=== PATIENT | female | born 1985 | race American Indian/Alaskan Native ===

== ENCOUNTER 2021-02-21 22:46 | Emergency (ER) | payer SELFPAY ==
[2021-02-22 00:22] VITALS: BP 132/83
[2021-02-22] MEDS ORDERED: CYCLOBENZAPRINE 10 MG TAB PO ONE (00:27)
[2021-02-22] MEDS ORDERED: predniSONE 20 MG TAB PO ONE (00:27)
[2021-02-22] MEDS ORDERED: IBUPROFEN 600 MG TAB PO ONE (00:27)
--- NOTE | 2021-02-22 02:19 | Vascular Lab Report ---
DUPLEX DOPPLER LOWER EXTREMITY VEINS, BILATERAL INDICATION / CLINICAL INFORMATION: Bilateral LE swelling and pain s/p [place] trip TECHNIQUE: Duplex doppler imaging was performed through the veins of both lower extremities using chema ous compression and other maneuvers. COMPARISON: None available. FINDINGS: RIGHT COMMON FEMORAL VEIN: Negative. RIGHT FEMORAL VEIN: Negative. RIGHT POPLITEAL VEIN: Negative. RIGHT CALF VEINS: Negative. LEFT COMMON FEMORAL VEIN: Negative. LEFT FEMORAL VEIN: Negative. LEFT POPLITEAL VEIN: Negative. LEFT CALF VEINS: Negative. ADDITIONAL FINDINGS: None. IMPRESSION: No sonographic evidence for DVT in either lower extremity. Signer Name: Albino Fernandez MD Signed: 02/22/2021 2:15 AM Workstation Name: [id number]
--- NOTE | 2021-02-22 03:27 | Emergency Department Report ---
ED Extremity Problem HPI - General Chief complaint: Extremity Injury, Lower Stated complaint: BILATERAL LEG AND ANKLE SWELLING Source: patient Mode of arrival: Wheelchair Limitations: Physical Limitation - History of Present Illness Initial comments: Patient is a 36-year-old -Armenian female with no past medical history presents to the ED with complaint of acute onset persistent nontraumatic bilateral diffuse lower extremity pain with mild swelling for the last 1 week. Patient states that the pain has been persistent and worse in the last 2 days. Patient states that she just returned from a trip for a vacation in [place] about 1 week ago and states that the physical activities she was involving were not unusual. 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 Patient denies shortness of breath, fever, chills, cough, chest pain, numbness and tingling or weakness of lower extremities bilaterally, low back pain, hematuria, dizziness, syncope, fall, nausea and vomiting, fever or chills or hip pain. MD Complaint: extremity pain (bilateral leg pain and swellimng), extremity s welling (Bilateral leg swelling and pain), other (Patient just returned from a vacation in [place] 1 week ago) -: Sudden, days(s) (7) Location: bilateral lower extremity History of Same: No -: Yes myalgia, Yes arthralgia, No fever, No associated dyspnea, No associated chest pain Radiation: distal Severity scale (0 -10): 9 Quality: aching, sharp Consistency: constant Improves with: nothing Worsens with: weight bearing, walking, exertion, palpation Associated Symptoms: denies other symptoms, myalgias, arthralgias. denies: chest pain, shortness of breath, fever, rash - Related Data Previous Rx's Medication Instructions Recorded Last Taken Type Cyclobenzaprine [Flexeril] 10 mg PO TID PRN #14 tablet 08/26/13 Unknown Rx HYDROcodone/APAP 5-325 [[place] 1 each PO Q6HR PRN #10 tablet 08/26/13 Unknown Rx 5-325 mg TAB] Naproxen [Naprosyn] 500 mg PO BID #20 tablet 08/26/13 Unknown Rx Baclofen 20 mg PO Q12H PRN #30 tablet 02/22/21 Unknown Rx Ibuprofen [Motrin] 800 mg PO Q8HR PRN #30 tablet 02/22/21 Unknown Rx Allergies Allergy/AdvReac Type Severity Reaction Status Date / Time No Known Allergies Allergy Verified 02/22/21 00:22 ED Review of Systems ROS: Stated complaint: BILATERAL LEG AND ANKLE SWELLING Other details as noted in HPI Constitutional: denies: chills, fever Eyes: denies: eye pain, eye discharge, vision change ENT: denies: ear pain, throat pain Respiratory: denies: cough, shortness of breath, wheezing Cardiovascular: denies: chest pain, palpitations Endocrine: no symptoms reported Gastrointestinal: denies: abdominal pain, nausea, diarrhea Genitourinary: denies: urgency, dysuria, discharge Musculoskeletal: arthralgia (Bilateral lower leg pain diffusely with mild swelling). denies: back pain, joint swelling Skin: denies: rash, lesions Neurological: denies: headache, weakness, paresthesias Psychiatric: denies: anxiety, depression Hematological/Lymphatic: denies: easy bleeding, easy bruising ED Past Medical Hx - Past Medical History Additional medical history: guillain barre - Social History Smoking Status: Current Every Day Smoker Substance Use Type: Marijuana - Medications Home Medications: Home Medications Medication Instructions Recorded Confirmed Last Taken Type Cyclobenzaprine [Flexeril] 10 mg PO TID PRN #14 tablet 08/26/13 Unknown Rx HYDROcodone/APAP 5-325 [[place] 1 each PO Q6HR PRN #10 tablet 08/26/13 Unknown Rx 5-325 mg TAB] Naproxen [Naprosyn] 500 mg PO BID #20 tablet 08/26/13 Unknown Rx Baclofen 20 mg PO Q12H PRN #30 tablet 02/22/21 Unknown Rx Ibuprofen [Motrin] 800 mg PO Q8HR PRN #30 tablet 02/22/21 Unknown Rx ED Physical Exam - General Limitations: Physical Limitation General appearance: alert, in no apparent distress - Head Head exam: Present: atraumatic, normocephalic, normal inspection - Eye Eye exam: Present: normal appearance, PERRL, EOMI Pupils: Present: normal accommodation - ENT ENT exam: Present: normal exam, normal orophraynx, mucous membranes moist, TM's normal bilaterally, normal external ear exam - Neck Neck exam: Present: normal inspection, full ROM. Absent: tenderness - Respiratory Respiratory exam: Present: normal lung sounds bilaterally. Absent: respiratory distress, wheezes, rhonchi, chest wall tenderness, accessory muscle use, decreased breath sounds, prolonged expiratory - Cardiovascular Cardiovascular Exam: Present: regular rate, normal rhythm, normal heart sounds. Absent: systolic murmur, diastolic murmur, rubs, gallop - GI/Abdominal GI/Abdominal exam: Present: soft, normal bowel sounds. Absent: tenderness, guarding, rebound, hyperactive bowel sounds, hypoactive bowel sounds, organomegaly - Extremities Exam Extremities exam: Present: normal inspection, full ROM, tenderness (Palpable diffuse lower extremity tenderness), normal capillary refill, calf tenderness. Absent: pedal edema, joint swelling - Back Exam Back exam: Present: normal inspection, full ROM. Absent: tenderness, CVA tenderness (R), CVA tenderness (L), muscle spasm, paraspinal tenderness, vertebral tenderness - Neurological Exam Neurological exam: Present: alert, oriented X3, CN II-XII intact, normal gait, reflexes normal - Psychiatric Psychiatric exam: Present: normal affect, normal mood - Skin Skin exam: Present: warm, dry, intact, normal color. Absent: rash ED Course Vital Signs 02/22/21 00:19 Temperature 99.0 F Pulse Rate 87 Respiratory 24 Rate Blood Pressure 132/83 O2 Sat by Pulse 98 Oximetry ED Medical Decision Making - Radiology Data Radiology results: report reviewed, [place] [address] Vascular Lab Report Signed Patient: LEATHA HAINES MR#: [id number] : 1985 Acct:[id number] Age/Sex: 36 / F ADM Date: 02/21/21 Loc: ED Attending Dr: Ordering Physician: JOSE RUBIO Date of Service: 02/22/21 Procedure(s): VL venous duplex LE BILAT Accession Number(s): [id number] cc: JOSE RUBIO DUPLEX DOPPLER LOWER EXTREMITY VEINS, BILATERAL INDICATION / CLINICAL INFORMATION: Bilateral LE swelling and pain s/p [place] trip TECHNIQUE: Duplex doppler imaging was performed through the veins of both lower extremities using venous compression and other maneuvers. COMPARISON: None available. FINDINGS: RIGHT COMMON FEMORAL VEIN: Negative. RIGHT FEMORAL VEIN: Negative. RIGHT POPLITEAL VEIN: Negative. RIGHT CALF VEINS: Negative. LEFT COMMON FEMORAL VEIN: Negative. LEFT FEMORAL VEIN: Negative. LEFT POPLITEAL VEIN: Negative. LEFT CALF VEINS: Negative. ADDITIONAL FINDINGS: None. IMPRESSION: No sonographic evidence for DVT in either lower extremity. Signer Name: Albino Fernandez MD Signed: 02/22/2021 2:15 AM Workstation Name: [id number] Transcribed By: PACO Dictated By: Albino Fernandez MD Electronically Authenticated By: Albino Fernandez MD Signed Date/Time: 02/22/21214 DD/ 3 TD/TT: - Medical Decision Making This is a 36-year-old -Armenian female with no past medical history presents to the ED with complaint of acute onset persistent nontraumatic bilateral diffuse lower extremity pain with mild swelling for the last 1 week. Patient states that the pain has been persistent and worse in the last 2 days. Patient states that she just returned from a trip for a vacation in [place] about 1 week ago and states that the physical activities she was involving were not unusual. 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 In the ED, patient is alert and oriented x3 and is not in any distress. Patient was treated for pain in the ED. Bilateral lower extremity Doppler ultrasound showed no sonographic evidence of DVT. On reevaluation, patient's pain is well controlled medications. Patient symptoms are likely musculoskeletal muscle spasm or muscle strain. Patient will discharge home on pain medications muscle relaxants and advised to follow-up with her primary care physician in 5 to 7 days for reevaluation. Patient was also advised return to the ED immediately if symptoms get worse. - Differential Diagnosis DVT; Muscle stain; Muscle spasm Critical care attestation.: If time is entered above; I have spent that time in minutes in the direct care of this critically ill patient, excluding procedure time. ED Disposition Clinical Impression: Muscle spasm of both lower legs Muscle strain of lower extremity Qualifiers: Encounter type: initial encounter Laterality: unspecified laterality Qualified Code(s): S86.919A - Strain of unspecified muscle(s) and tendon(s) at lower leg level, unspecified leg, initial encounter Disposition: HOME / SELF CARE / HOMELESS Is pt being admited?: No Does the pt Need Aspirin: No Condition: Stable Instructions: Muscle Cramps and Spasms, [id number], Muscle Strain, [id number] Additional Instructions: The Doppler ultrasound of lower extremities bilaterally showed no sonographic evidence of DVT. Therefore your symptoms are likely musculoskeletal muscle strain or muscle spasm. Therefore take medication as needed for pain and muscle spasm. Follow-up with your primary care physician in 5 to 7 days for reevaluation. Return to the ED immediately if symptoms get worse. Prescriptions: Baclofen 20 mg PO Q12H PRN #30 tablet PRN Reason: Muscle Spasm Ibuprofen [Motrin] 800 mg PO Q8HR PRN #30 tablet PRN Reason: Pain , Severe (7-10) Referrals: [facility] [Provider Group] - 3-5 Days Forms: Work/School Release Form(ED) Time of Disposition: 03:27 Print Language: UPPER SORBIAN
== END 2021-02-22 04:01 | disposition home or self-care (01) ==
LOC: ED 22:46
DX: S86.919A Strain of unspecified muscle(s) and tendon(s) at lower leg level, unspecified leg, initial encounter (principal); M62.838 Other muscle spasm; G61.0 Guillain-Barre syndrome; F17.200 Nicotine dependence, unspecified, uncomplicated; F12.10 Cannabis abuse, uncomplicated
CPT/HCPCS: 93970; 99283; J7512